=== PATIENT | male | born 2000 | race Caucasian/White ===

== ENCOUNTER 2022-12-04 22:19 | Emergency (ER) | payer OTHER ==
[~2022-12-04] VITALS: Ht 188 cm; Wt 63.5 kg
[2022-12-04 22:40] VITALS: BP 154/105
== END 2022-12-04 23:46 | disposition home or self-care (01) ==
LOC: ER 22:19
DX: T15.82XA Foreign body in other and multiple parts of external eye, left eye, initial encounter (principal); V89.2XXA Person injured in unspecified motor-vehicle accident, traffic, initial encounter
CPT/HCPCS: 99283; A9270